=== PATIENT | male | born 1995 | race Hispanic/Latino ===

== ENCOUNTER 2021-02-19 16:14 | Emergency (ER) | payer SELFPAY ==
[~2021-02-19] VITALS: Ht 152.4 cm; Wt 88.5 kg
[2021-02-19] MEDS ORDERED: ASPIRIN 81 MG CHEW TAB PO ONE ×2 (16:45)
[2021-02-19 17:51] LABS: BASOPHILS % 0.4 % (0.0-1.0); EOSINOPHILS # (AUTO) 0.1 (0.0-0.4); EOSINOPHILS % 0.9 % (0.0-6.0); HEMATOCRIT 45.1 % (38.2-49.6); HEMOGLOBIN 16.1 g/dL (14.0-18.0); LYMPHOCYTES # (AUTO) 2.2 (1.0-3.2); LYMPHOCYTES % 21.8 % (18.0-39.1); MEAN CORPUSCULAR HEMOGLOBIN 31.3 pg (28-32); MEAN CORPUSCULAR HGB CONC 35.7 g/dL (31-35); MEAN CORPUSCULAR VOLUME 87.6 fL (81-99); MONOCYTES # (AUTO) 0.8 (0.2-0.8); MONOCYTES % 8.5 % (4.4-11.3); NEUTROPHILS # (AUTO) 6.8 (2.1-6.9); NEUTROPHILS % 68.1 % (38.7-80.0); PLATELET COUNT 283 x10e3/uL (140-360); RED BLOOD COUNT 5.15 x10e6/uL (4.3-5.7); RED CELL DISTRIBUTION WIDTH 11.4 % (11.7-14.4)
[2021-02-19 18:15] LABS: ALBUMIN 4.4 g/dL (3.5-5.0); ALBUMIN/GLOBULIN RATIO 1.5 (0.8-2.0); ANION GAP 16.3 mmol/L (8-16); CALCIUM 9.2 mg/dL (8.4-10.2); CREATININE, SERUM 1.08 mg/dL (0.72-1.25); POTASSIUM 3.3 mmol/L (3.5-5.1)
[2021-02-19 18:21] LABS: CREATINE KINASE MB 0.7 ng/mL (0-5.0)
[2021-02-19] MEDS ORDERED: HYDROXYZIN50 MG/25 M PO (18:57)
[2021-02-19 19:31] VITALS: BP 125/72
== END 2021-02-19 19:32 | disposition home or self-care (01) ==
LOC: ER 16:49
DX: R07.9 Chest pain, unspecified (principal); R06.4 Hyperventilation; F41.1 Generalized anxiety disorder
CPT/HCPCS: 36415; 71046; 80053; 82550; 82553; 84484; 85025; 93005; 99283; U0002

== ENCOUNTER 2021-10-14 10:21 | Emergency (ER) | payer SELFPAY ==
[~2021-10-14] VITALS: Ht 152.4 cm; Wt 88.5 kg
[~2021-10-14 10:21] MED LIST: HYDROXYZIN50 MG/25 M PO
[2021-10-14] MEDS ORDERED: MOXIFLOXACIN3 ML OP (10:39)
[2021-10-14] MEDS ORDERED: TETRACAINE HCL 0.5% OPTH SOLN 4 ML BTL OP ONE (10:45)
[2021-10-14] MEDS ORDERED: FLUORESCEIN SOD(OPTH) 1 MG STRP OP ONE (10:45)
[2021-10-14] MEDS ORDERED: TETRACAINE HCL 0.5% OPTH SOLN 4 ML BTL ONE (10:47)
[2021-10-14] MEDS ORDERED: FLUORESCEIN SOD(OPTH) 1 MG STRP ONE (10:47)
== END 2021-10-14 10:50 | disposition home or self-care (01) ==
LOC: ER 10:23
DX: H10.9 Unspecified conjunctivitis (principal); R01.1 Cardiac murmur, unspecified
CPT/HCPCS: 99282